=== PATIENT | female | born 1975 | race Caucasian/White ===

== ENCOUNTER 2017-08-12 12:24 | Emergency (ER) | payer OTHER, SELFPAY ==
[2017-08-12 12:25] VITALS: BP 153/133; PULSE 78; RESP 16; TEMP 36.6; O2SAT 98; BMI 47.8
--- NOTE | 2017-08-12 12:35 | CT_ITS ---
STUDY: CT ABDOMEN AND PELVIS WITHOUT CONTRAST REASON FOR EXAM: Female, 42 years old. Low back pain. Right worse than left. RADIATION DOSAGE (If Supplied By Facility): CTDIvol = ( 14.80 ) mGy, DLP = ( 777.85 ) mGycm TECHNIQUE: Transaxial images were obtained from the dome of the diaphragm to the symphysis pubis without oral contrast, and without intravenous contrast. Sagittal and coronal images were reconstructed. Individualized dose optimization techniques were used for this CT. COMPARISON: Comparison is made with prior examination dated May 05, 2017. FINDINGS: The visualized lung bases are unremarkable. The visualized portions of the heart are within normal limits. There is decreased attenuation of the liver consistent with steatosis. Mild hepatomegaly. Normal gallbladder and extrahepatic biliary system. Normal spleen. Normal pancreas. Normal bilateral adrenal glands. Normal right kidney. Normal left kidney. Normal visualized stomach. Normal small intestine. There are scattered colonic diverticula consistent with diverticulosis. The appendix is visualized and appears normal. Normal abdominal aorta. Normal inferior vena cava. Normal retroperitoneum. Normal urinary bladder. Normal abdominal wall. There are diffuse degenerative changes of the visualized lumbar spine. CT/Abdomen/Pelvis without Cont IMPRESSION: Fatty infiltration of the liver. Scattered sigmoid diverticula. Electronically Signed: Pedro Luis Mascorro MD at 14:43 EST Tel [phone], Service support ,
[2017-08-12 12:37] VITALS: BP 158/90; PULSE 80; RESP 14; O2SAT 98
--- NOTE | 2017-08-12 12:49 | ED.VISSUMM ---
- ER Visit Summary Date of Service: 08/12/17 Chief Complaint: Bilateral flank pain History of Present Illness: The patient is a 42 F presenting with bilateral flank pain, right greater than left. She states this started this morning. She has dysuria. She states that she sometimes feels that she does not completely empty her bladder. She denies fever. She has nausea with no vomiting. Denies trauma. She went to urgent care and was found to have blood in her urine. She was sent to the ED for further evaluation. Physical Examination: Vitals are stable. Patient is afebrile. Alert no acute distress. HEENT exam is unremarkable. Neck is supple. Lungs are clear and equal bilaterally. Heart is regular rate and rhythm. Abdomen is soft nontender nondistended. Back: Right greater than left CVA tenderness Extremities are unremarkable. Skin is warm and dry. No focal neurologic deficit. Remainder of exam is unremarkable. Emergency Department Course and Treatment: Patient was given Toradol IV. CBC, chemistries unremarkable. Urinalysis normal except for trace blood. HCG negative. CT flank shows no acute process. Patient is feeling improved in the ED. She is advised to follow-up with her primary care physician. She has Flexeril that she will try at home. She is advised return to ED if worsening complaints. Disposition: Discharge home Impression: Bilateral flank pain This note was generated with [employer] dictation software. It may contain incorrect words, spelling, and punctuation that were not noted in review of the chart prior to signing ED Disposition - Plan for ED Patient: Chief Complaint: Complaint Referrals: Diana Valentin MD [Primary Care Provider] -
[2017-08-12] MEDS: 0.9% Normal Saline 1,000 ML 1000 ML IV (12:51)
[2017-08-12 13:01] LABS: Absolute Lymphocyte Count 4.13 X10^3/ul (0.83-4.51); Absolute Neutrophil Count 5.3 X10^3/uL (2.0-7.7); Basophil# 0.03 X10^3/uL; Basophil% 0.3 % (0-1); Eosinophil# 0.13 X10^3/uL; Eosinophils% 1.3 % (0-5); Hematocrit 47.4 % (37-47); Hemoglobin 15.5 g/dl (12.0-15.0); Lymphocyte # 4.13 X10^3/ul (4.0); Lymphocyte % 40.9 % (19-41); Mean Corp Hgb Conc 32.7 g/gl (32-36); Mean Corpuscular Hgb 30.4 pg (27.0-32.0); Mean Corpuscular Volume 92.9 fL (81-99); Mean Platelet Vol. 10.5 fl (6.2-12.0); Monocyte# 0.51 X10^3/uL; Neutrophil # 5.27 X10^3/uL (2.7-7.7); Neutrophil % 52.2 % (47-70); Platelet Count 245 K/mm3 (150-450); RBC Distribution Width CV 14.6 % (11.6-14.6); RBC Distribution Width SD 49.6 fl (35.1-43.9); White Blood Count 10.1 K/mm3 (4.4-11.0)
[2017-08-12 13:04] LABS: POSITIVE COUNT NO; POSITIVE DIFFERENTIAL NO
[2017-08-12 13:05] LABS: POSITIVE MORPHOLOGY NO
[2017-08-12 13:13] LABS: Anion Gap 7 (5-15); BUN 13 mg/dL (7-18); BUN/Creat Ratio 13.4 RATIO (10-20); Calcium,Total 8.9 mg/dL (8.5-10.1); Chloride 107 mmol/L (98-107); Creatinine, Serum 0.97 mg/dL (0.55-1.02); EST Glomerular Filtration Rate 67 mL/min (>60); Est Glom Filt Rate - Afr Amer 81 mL/min (>60); Glucose 90 mg/dL (74-106); Sodium Level 139 mmol/L (136-145)
[2017-08-12 13:18] LABS: Pregnancy, Serum, hCG Quali. NEGATIVE Negative (0-9 Nonpreg)
[2017-08-12 14:41] LABS: Bacteria 0 SEEN /hpf (None Seen); Mucous, Urine 0 SEEN /hpf (<or=2+); Red Blood Cells-Urine 0 SEEN /hpf (0-5)
[2017-08-12 14:43] LABS: Color, Urine Yellow (Yellow); Glucose, Dipstick Normal (Normal); Ketone-Dipstick Negative (Negative); Leukocyte Esterase-Dipstick Negative /ul (Negative); Nitrite-Dipstick Negative (Negative); Occult Blood-Urine 25 /ul (Negative); Protein-Dipstick Negative (Negative); Specific Gravity, Urine 1.015 (1.002-1.030); Urine Bilirubin Dipstick Negative (Negative); Urine Clarity Clear (Clear); Urine Urobilinogen Normal (Normal)
[2017-08-12 14:54] LABS: Squamous Epithelial Cells - UA 0-5 SEEN /hpf (5-10); White Blood Cells 0-5 SEEN /hpf (0-5)
[2017-08-12] MEDS: Ketorolac 30 MG/ML Syringe IV (15:02)
[2017-08-12 15:11] VITALS: BP 153/92; PULSE 75; RESP 14; O2SAT 99
--- NOTE | 2017-08-12 15:38 | ED.DEP ---
ED Disposition - Plan for ED Patient: Chief Complaint: Complaint Instructions: ED Flank Pain Uncertain Cause Referrals: Diana Valentin MD [Primary Care Provider] -
[2017-08-12 15:47] VITALS: BP 143/75; PULSE 78; RESP 14; O2SAT 99
== END 2017-08-12 15:55 | disposition home or self-care (01) ==
PROVIDERS: Emergency Provider Emergency Medicine; Family Provider Internal Medicine; PCP Internal Medicine
DX: R10.9 Unspecified abdominal pain (principal); R31.9 Hematuria, unspecified; R11.0 Nausea; R30.0 Dysuria; E11.9 Type 2 diabetes mellitus without complications; I10 Essential (primary) hypertension; M79.7 Fibromyalgia; M19.90 Unspecified osteoarthritis, unspecified site; F41.9 Anxiety disorder, unspecified; Z79.4 Long term (current) use of insulin; Z79.52 Long term (current) use of systemic steroids; Z79.899 Other long term (current) drug therapy
CPT/HCPCS: 74176; 80048; 81001; 84703; 85025; 96360; 99283; J7030

== ENCOUNTER 2020-09-27 17:37 | Inpatient (IN) | payer MEDICAID, SELFPAY ==
[2020-09-27] VITALS (20 sets, daily range): BP systolic 155–211; BP diastolic 68–172; PULSE 56–80; RESP 14–32; TEMP 36.7–37.4; O2SAT 96–100; BMI 47.2; BMI 45.8
--- NOTE | 2020-09-27 17:38 | EKG12_ITS ---
Test Reason : Blood Pressure : / mmHG Vent. Rate : 061 BPM Atrial Rate : 064 BPM P-R Int : 120 ms QRS Dur : 102 ms QT Int : 448 ms P-R-T Axes : 064 085 088 degrees QTc Int : 450 ms AGE AND GENDER SPECIFIC ECG ANALYSIS Normal sinus rhythm with sinus arrhythmia ST elevation consider inferior injury or acute infarct ACUTE ID / STEMI Consider right ventricular involvement in acute inferior infarct Abnormal ECG Confirmed by JENI HENDRIX, ARYA ([id number]), communications editor SALMA PACHECO ([id number]) on 09/30/2020 8:03:45 AM Referred By: Sushant Gillespie Confirmed By:VANESSA GILLESPIE MD
--- NOTE | 2020-09-27 17:40 | RAD_ITS ---
STUDY: X-RAY CHEST REASON FOR EXAM: Female, 45 years old. chest pain TECHNIQUE: AP portable COMPARISON: None. FINDINGS: The lungs are clear and expanded. There is no demonstrated pleural abnormality. Normal size heart. Normal mediastinum and carmelita. Normal visualized pulmonary arteries. Normal visualized aortic arch and descending thoracic aorta. Dorsal spine and shoulders demonstrate degenerative change Normal visualized ribs, clavicles, and shoulders. There is no demonstrated abnormality of the visualized soft tissue structures of the upper abdomen. RAD/Chest 1 View (Portable) IMPRESSION: No acute cardiopulmonary pathology Electronically Signed: Angel Wilkins MD at 18:22 EDT , Service support ,
--- NOTE | 2020-09-27 17:42 | ED.VIS.CHEST ---
History of Present Illness Chief Complaint: Chest Pain Informant: Patient, EMS Onset: Hours Activity at onset: Rest Timing: Continuous Quality: Heaviness, Tightness Location: Substernal Current Severity: Moderate Maximum Severity: Severe Worsened By: Nothing Relieved By: Nothing Associated Symptoms: Nausea, Diaphoresis, Dyspnea. Negative for: Vomiting, Cough, Lightheadedness, Acid Reflux, Palpitations Narrative: Patient 45-year-old woman with history of diabetes, hypertension, hypercholesterolemia and stroke 1 year ago requiring stent. Patient is a former smoker. She has no known history of coronary disease. She denies history of black or maroon stool. Has no contraindication to anticoagulation. Patient is still having pain. She did receive aspirin by squad and 1 nitro. Nitro had no effect. Initial EKG by squad was unremarkable. Second EKG reveals an acute ST elevation SC with reciprocal changes. Case discussed with interventional cardiology. He was informed of patient's history, presentation, EKG findings and treatment. Patient will go to the [employer] [facility]. CVD Risk Factors: Hypertension, Diabetes, Hypercholesterolemia PE Risk Factors: Negative for: Recent Travel/Surgery, Recenet Immobilization, Prior DVT or PE, Cancer, OCP + Smoking + >/=35 TAD Risk Factors: Hypertension. Negative for: Marfan's Syndrome, Family History - Past Medical History (1) History of hypertension Status: Chronic (2) History of diabetes as a child Status: Chronic (3) History of hypercholesterolemia Status: Chronic (4) History of stroke Status: Chronic Past Medical History - Allergies and Home Meds Allergies/Adverse Reactions: Allergies adhesive tape Allergy (Verified 09/27/20 18:06) Other cefdinir Allergy (Verified 08/12/17 12:27) Rash fluticasone [From Flonase] Allergy (Verified 09/27/20 18:06) Other isosorbide Allergy (Verified 09/27/20 17:59) Chest tightness Penicillins Allergy (Verified 08/12/17 12:27) Rash sulfamethoxazole [From Bactrim] Allergy (Verified 08/12/17 12:27) Rash trimethoprim [From Bactrim] Allergy (Verified 08/12/17 12:27) Rash clarithromycin [From Biaxin] Adverse Reaction (Verified 08/12/17 12:27) Vomiting clindamycin Adverse Reaction (Verified 08/12/17 12:27) Diarrhea codeine Adverse Reaction (Verified 08/12/17 12:27) Other lisinopril Adverse Reaction (Verified 08/12/17 12:27) Vomiting naproxen Adverse Reaction (Verified 08/12/17 12:27) Other ropinirole HCl [From Requip] Adverse Reaction (Verified 08/12/17 12:27) Chest tightness Prior records reviewed: No Past Medical History: None Surgical History: noncontributory Lives: Alone Smoking Status: Current every day smoker Alcohol: None Drugs: None Review of Systems General: Denies: Chills, Fever, Malaise, Subjective Eyes: Denies: Visual changes - bilaterally, Blurred Vision - bilaterally ENT: Denies: Left ear pain, Right ear pain, Rhinorrhea, Sore throat Cardiovascular: Reports: Chest pain. Denies: Palpitations, Heart racing Respiratory: Reports: Dyspnea. Denies: Cough, Sputum, Dyspnea on exertion, Orthopnea, Paroxysmal nocturnal dyspnea Gastrointestinal: Reports: Nausea. Denies: Abdominal pain, Vomiting, Diarrhea, Constipation, Melena, Hematochezia Genitourinary: Reports: Dysuria Musculoskeletal: Reports: Back pain. Denies: Myalgias, Arthralgias, Neck pain, Swelling, Extremity Pain, -, - Skin: Denies: Rash, Wounds Neurological: Denies: Headache, Weakness, Numbness Endocrine: Denies: Polyuria, Polydipsia Hematologic: Denies: Easy bruising, Easy bleeding Allergy: Denies: Uticaria Physical Exam Vital Signs/Narrative: Vital Signs Temp Pulse Resp BP Pulse Ox 09/27/20 17:38 98.1 F 56 L 17 176/84 H 98 Inital Vital Signs reviewed: Yes General: Well nourished, Well developed, Obese, Acute Distress Head: Normocephalic, Atraumatic Eyes: Perrl, EOMI. Negative for: Pale conjunctiva, Scleral icterus ENT: Moist mucous membranes, No rhinorrhea Neck: Supple, Nontender Cardiovascular: Regular rate, Regular rhythm, No murmurs, Normal S1, Normal S2 Respiratory: No distress, CTA bilaterally, Chest nontender Abdomen: Soft, Nontender, Nondistended, Normal bowel sounds Back: Nontender, Normal Inspection. Negative for: CVA tenderness Extremities: Nontender, No edema Skin: Normal color, No rash, Diaphoresis, No Trauma. Negative for: Cyanosis, Jaundice Neurological: Alert, Oriented x3, Cranial nerves II-XII grossly intact, Normal Strength, Normal Sensation Psychological: Normal affect, Normal Mood Diagnostic/Tx/Re-eval Chest X-Ray - ED: 1 View, Read by ED Physician, Read by Radiologist, Unchanged, Normal, Heart, Lungs, Mediastinum, Bony Structures, No Acute Disease Impressions Chest X-Ray 09/27/20 17:40 IMPRESSION: No acute cardiopulmonary pathology Electronically Signed: Angel Wilkins MD at 18:22 EDT , Service support , 09/27/20 17:40 Chest 1 View (Portable) [RAD] Stat Laboratory Results 09/27/20 09/27/20 09/27/20 17:55 17:55 17:55 WBC 11.6 H RBC 5.29 Hgb 15.9 H Hct 47.4 H MCV 89.6 MCH 30.1 MCHC 33.5 RDW Std Deviation 46.1 H RDW Coeff of Claudia 14.1 Plt Count 290 MPV 10.4 Immature Gran % (Auto) 0.500 Neut % (Auto) 57.5 Lymph % (Auto) 34.3 [place] % (Auto) 6.1 Eos % (Auto) 1.2 Baso % (Auto) 0.4 Absolute Neuts (auto) 6.7 Absolute Lymphs (auto) 3.99 Nucleated RBC % 0 PT 12.2 INR 1.0 APTT 28.3 Sodium 137 Potassium 4.5 Chloride 103 Carbon Dioxide 24.0 Anion Gap 10 BUN 11 Creatinine 1.02 Estim Creat Clear Calc 60.14 Est GFR (MDRD) Af Amer 75 Est GFR (MDRD) Non-Af 62 BUN/Creatinine Ratio 10.8 Glucose 236 H Calcium 9.4 Troponin I 0.041 - EKG Initial EKG Interpretation: Sinus Rhythm - Sinus rhythm rate of [address] elevation inferior leads with reciprocal changes. MS interval is 120 ms. Cures duration 102 ms. QT duration 448 ms. Nevis is normal. Treatment: Aspirin, Heparin IV, - - 180 mg of Brilinta Repeat Eval: 12/17 CLEOPATRA Risk: ASA within 7 days, Severe Angina </=24 hours Score: 2 - Medical Decision Making Patient was informed she is having an acute SC with blockage in the inferior artery. Cardiology was made aware. STEMI team was called prehospital. STEMI order set was initiated. Plan is to the [employer] [facility]. Critical care time (excluding procedures): 30-74 minutes - Care time 15 minutes includes obtaining history, physical exam, documentation, review of EKGs prehospital, discussion with cardiology and hospitalist. ED Disposition - Plan for ED Patient: Disposition: Acute Care Hospital [facility] Diagnosis: Acute ST elevation myocardial infarction (STEMI) of inferior wall, History of hypertension, History of diabetes as a child, History of hypercholesterolemia, History of stroke
[2020-09-27] MEDS: TICAGRELOR 90 MG TABLET 180 MG PO (17:43)
[2020-09-27] MEDS: Heparin Injection (Vial) 5,000 UNIT/ML VIAL 4000 UNIT IV (17:44)
--- NOTE | 2020-09-27 17:56 | CM.ED ---
Addendum entered by Soco Gore 09/27/20 18:12: Escorted brother to laboratory tech. Original Note: SOCIAL WORK STEMI Alert Responded to STEMI Alert. Patient's brother arrived. SW offered support and education. Once laboratory tech ready will escort brother to laboratory tech. Caroline Mcfadden, PATENT CHEMIST, STOCKROOM COORDINATOR
[2020-09-27 18:06] LABS: Absolute Lymphocyte Count 3.99 X10^3/uL (0.83-4.51); Absolute Neutrophil Count 6.7 X10^3/uL (2.0-7.7); Basophil# 0.05 X10^3/uL; Basophil% 0.4 % (0-1); Eosinophil# 0.14 X10^3/uL; Eosinophils% 1.2 % (0-5); Hematocrit 47.4 % (37-47); Hemoglobin 15.9 g/dL (12.0-15.0); Lymphocyte # 3.99 X10^3/ul (0.83-4.51); Lymphocyte % 34.3 % (19-41); Mean Corp Hgb Conc 33.5 g/dL (32-36); Mean Corpuscular Hgb 30.1 pg (27.0-32.0); Mean Corpuscular Volume 89.6 fL (81-99); Mean Platelet Vol. 10.4 fl (6.2-12.0); Monocyte# 0.71 X10^3/uL; Monocyte% 6.1 % (0-10); NRBC Flagged by Analyzer 0 % (0-5); Neutrophil # 6.67 X10^3/uL (2.7-7.7); Neutrophil % 57.5 % (47-70); Platelet Count 290 K/mm3 (150-450); RBC Distribution Width CV 14.1 % (11.6-14.6); RBC Distribution Width SD 46.1 fl (35.1-43.9); Red Blood Count 5.29 M/mm3 (4.2-5.4); White Blood Count 11.6 K/mm3 (4.4-11.0)
[2020-09-27 18:25] LABS: Anion Gap 10 (5-15); BUN 11 mg/dL (7-18); BUN/Creat Ratio 10.8 RATIO (10-20); Calcium,Total 9.4 mg/dL (8.5-10.1); Chloride 103 mmol/L (98-107); Creatinine, Serum 1.02 mg/dL (0.55-1.02); EST Glomerular Filtration Rate 62 mL/min (>60); Est Glom Filt Rate - Afr Amer 75 mL/min (>60); Estimated Creatinine Clearance 60.14 ml/min; Glucose 236 mg/dL (74-106); Potassium 4.5 mmol/L (3.5-5.1); Sodium Level 137 mmol/L (136-145)
[2020-09-27 18:41] LABS: Prothrombin Time (Protime)PT. 12.2 SECONDS (11.7-14.9)
[2020-09-27 18:43] LABS: Partial Thromboplast Time 28.3 Seconds (24.1-36.2)
--- NOTE | 2020-09-27 19:57 | HP.PCM_ITS ---
Problem List (1) Acute ST elevation myocardial infarction (STEMI) of inferior wall Status: Acute (2) History of hypertension Status: Chronic (3) History of diabetes as a child Status: Chronic (4) History of hypercholesterolemia Status: Chronic (5) History of stroke Status: Chronic (6) Non-alcoholic fatty liver disease Status: Chronic History of Present Illness Date of Admission: 09/27/20 Chief Complaint: Chest Pain Patient is a 45-year-old female who presents to the ER with complaints of substernal chest pain at rest with associated nausea, diaphoresis, dyspnea. Patient states that this chest pain has been going on for a few hours and is a 9 out of 10. Nothing has improved the pain and only time has made it worse. States that the pain does not radiate to her arm, back or neck. EMS noted acute ST elevation on EKG prior to patient arrival at hospital and a STEMI alert was called. Past Medical History Past Medical History (Chronic Problems): Chronic Problems History of hypertension (Chronic) History of diabetes as a child (Chronic) History of hypercholesterolemia (Chronic) History of stroke (Chronic) Non-alcoholic fatty liver disease (Chronic) Allergies adhesive tape Allergy (Verified 09/27/20 18:06) Other cefdinir Allergy (Verified 08/12/17 12:27) Rash fluticasone [From Flonase] Allergy (Verified 09/27/20 18:06) Other isosorbide Allergy (Verified 09/27/20 17:59) Chest tightness Penicillins Allergy (Verified 08/12/17 12:27) Rash sulfamethoxazole [From Bactrim] Allergy (Verified 08/12/17 12:27) Rash trimethoprim [From Bactrim] Allergy (Verified 08/12/17 12:27) Rash clarithromycin [From Biaxin] Adverse Reaction (Verified 08/12/17 12:27) Vomiting clindamycin Adverse Reaction (Verified 08/12/17 12:27) Diarrhea codeine Adverse Reaction (Verified 08/12/17 12:27) Other lisinopril Adverse Reaction (Verified 08/12/17 12:27) Vomiting naproxen Adverse Reaction (Verified 08/12/17 12:27) Other ropinirole HCl [From Requip] Adverse Reaction (Verified 08/12/17 12:27) Chest tightness Home Medications: Ambulatory Orders Medication Instructions Recorded Gabapentin [Neurontin] 1,200 mg PO QHS 02/26/16 Hydrochlorothiazide [Hctz] 12.5 mg PO DAILY 02/26/16 Atorvastatin Calcium [Lipitor] 40 mg PO DAILY 05/05/17 Bupropion HCl [Bupropion Xl] 150 mg PO DAILY 05/05/17 Fexofenadine HCl [Essie Allergy] 180 mg PO DAILY 05/05/17 Glimepiride [Amaryl] 4 mg PO DAILY 05/05/17 Losartan Potassium [Cozaar] 25 mg PO DAILY 05/05/17 Metformin HCl 1,000 mg PO BID 05/05/17 Prednisone 10 mg PO DAILY 05/05/17 cycloBENZAPRine HCl [Flexeril] 10 mg PO PRN PRN 05/05/17 Surgical History: noncontributory Psychiatric History: No pertinent psych hx PIANO PROFESSOR History: No pertinent PIANO PROFESSOR history Lives: Alone Smoking Status: Current every day smoker Tobacco Use: Cigarettes Alcohol: None Drugs: None Review of Systems Constitutional: Denies: Chills, Fever, Weight Change HEENT: Denies: Head Aches, Sinus Congestion, Sinus Drainage Cardiovascular: Reports: Chest Pain, Chest Pressure, Chest Tightness. Denies: Palpitations Respiratory: Denies: Cough, Shortness of breath at rest, Sputum production Gastrointestinal: Reports: Nausea. Denies: Abdominal Pain, Vomiting Genitourinary: Denies: Dysuria Musculoskeletal: Denies: Joint Pain, Joint Tenderness Skin: Denies: Rash, Wounds Neurological: Denies: Numbness, Tingling, Focal weakness Psychiatric: Denies: Anxiety, Depression, Homicidal Ideations, Suicidal Ideations Hematologic/ Lymphatic: Denies: Easy Bruising, Easy Bleeding VTE Information - Inpt Only VTE Present on Admission: No VTE Mechan Device Prophylaxis: SCD's VTE Pharm Prophylaxis ordered?: Yes Patient Problems: Active and Suspected Problems Acute ST elevation myocardial infarction (STEMI) of inferior wall (Acute) - Physical Exam Vitals/I&O's: Vital Signs Temp Pulse Resp BP Pulse Ox 98.4 F 70 16 211/172 H 100 09/27/20 17:59 09/27/20 17:59 09/27/20 17:59 09/27/20 17:59 09/27/20 17:59 Oxygen Delivery Method Room Air Weight: 275 lb 2.19 oz Body Mass Index (BMI) 47.2 General: Alert, Oriented x3, Cooperative HEENT: Atraumatic, PERRLA, EOMI, Normocephalic Neck: Supple, No JVD, Negative Carotid Bruits Lungs: Clear to auscultation, Normal air movement, Short of Breath Cardiovascular: Regular rate, Regular Rhythm, Normal S1, Normal S2, No murmurs, - - Chest pain currently 3 out of 10, nitro drip infusing Abdomen: Bowel Sounds Present, Soft, Non Tender Extremities: No edema, Capillary Refill Less than 3 Seconds Skin: No rashes, No breakdown Musculoskeletal: No Tenderness to Palpation of Joints or Extremities Neurological: Cranial nerves II-XII grossly intact Psych/Mental Status: Normal Affect, Appropriate Laboratory Results 09/27/20 17:55: WBC 11.6 H, RBC 5.29, Hgb 15.9 H, Hct 47.4 H, MCV 89.6, MCH 30.1, MCHC 33.5, RDW Std Deviation 46.1 H, RDW Coeff of Claudia 14.1, Plt Count 290, MPV 10.4, Immature Gran % (Auto) 0.500, Neut % (Auto) 57.5, Lymph % (Auto) 34.3, [place] % (Auto) 6.1, Eos % (Auto) 1.2, Baso % (Auto) 0.4, Absolute Neuts (auto) 6.7, Absolute Lymphs (auto) 3.99, Nucleated RBC % 0 09/27/20 17:55: PT 12.2, INR 1.0, APTT 28.3 09/27/20 17:55: Sodium 137, Potassium 4.5, Chloride 103, Carbon Dioxide 24.0, Anion Gap 10, BUN 11, Creatinine 1.02, Estim Creat Clear Calc 60.14, Est GFR (MDRD) Af Amer 75, Est GFR (MDRD) Non-Af 62, BUN/Creatinine Ratio 10.8, Glucose 236 H, Calcium 9.4, Troponin I 0.041 Current Medications Aspirin (Aspirin E.C. 81 Mg Tablet) 81 mg PO DAILY@0800 REPLACED BY [facility] Atorvastatin Calcium (Atorvastatin Calcium 40 Mg Tablet) 40 mg PO QHS REPLACED BY [facility] Atropine Sulfate (Atropine Sulfate 1 Mg/10 Ml Syringe) 0.5 mg IV UD PRN PRN Reason: HR <50 bpm Carvedilol (Carvedilol 6.25 Mg Tablet) 6.25 mg PO BID REPLACED BY [facility] Heparin Sodium (Beef Lung) (Heparin Lock 500 Unit/5 Ml In 10 Ml Syringe) 500 unit IV UD PRN PRN Reason: HEPARIN FLUSH Labetalol HCl (Labetalol (Prefilled) 20 Mg/4 Ml) 5 mg IV X1 PRN PRN Reason: SBP >160 when pulling sheath Stop: 09/29/20 19:53 Sodium Chloride (0.9% Normal Saline 500 Ml Iv.Soln.) 500 ml IV BOLUS PRN PRN Reason: VASO-VAGAL PROTOCOL Ticagrelor (Ticagrelor 90 Mg Tablet) 90 mg PO BID REPLACED BY [facility] Assessment/Plan All Active Problems Acute ST elevation myocardial infarction (STEMI) of inferior wall (Acute) 1. STEMI -Admit to ICU for continuous cardiac monitoring -CBC and BMP daily -Consult cardiology -Echocardiogram in a.m. -Trend cardiac enzymes -Lipid panel, magnesium, phosphorus chest pain chest pain in a.m. 2. Hypertension -Continue HCTZ and Losartan. -Nitroglycerin drip initiated 3. Diabetes mellitus type 2 -Hold Metformin and glimepiride -AC at bedtime blood sugars with sliding scale insulin ordered -Check hemoglobin A1c -Consult nutrition for diabetic education 4. Hyperlipidemia -Increase atorvastatin to 80 mg p.o. 5. Morbid obesity, BMI -Nutrition consulted for education, lifestyle modification encouraged DVT prophylaxis-Lovenox to start tomorrow due to cardiac cath This patient was seen by Lamar Hood NP-C under the supervision of Dr. Chopra
--- NOTE | 2020-09-27 19:58 | PCM.CONS.C ---
Reason for Consult Date of Consultation: 09/27/20 History of Present Illness: The patient is a 45 year old F [coming to the emergency room because of chest pain. In the emergency room she was found to have inferior ST elevation [place] and a STEMI alert was called. Patient was brought emergently to the cardiac [facility] [employer] [facility] Director and coronary angiography was performed. There was delay to PCI as it was difficult to get vascular access for the patient. We initially tried the right ulnar artery and then both common femoral arteries and finally were able to get access through the right brachial artery. Patient was found to have 99% stenosis in the mid RCA that was treated with drug-eluting stents. She also had an 80% stenosis in the LAD that was treated with a drug-eluting stent. Patient is being admitted to the ICU for further management of rest elevation [place]. Review of systems: All systems reviewed. All else is negative except that in HPI.] Past Medical History Allergies/Adverse Reactions: Allergies adhesive tape Allergy (Verified 09/27/20 18:06) Other cefdinir Allergy (Verified 08/12/17 12:27) Rash fluticasone [From Flonase] Allergy (Verified 09/27/20 18:06) Other isosorbide Allergy (Verified 09/27/20 17:59) Chest tightness Penicillins Allergy (Verified 08/12/17 12:27) Rash sulfamethoxazole [From Bactrim] Allergy (Verified 08/12/17 12:27) Rash trimethoprim [From Bactrim] Allergy (Verified 08/12/17 12:27) Rash clarithromycin [From Biaxin] Adverse Reaction (Verified 08/12/17 12:27) Vomiting clindamycin Adverse Reaction (Verified 08/12/17 12:27) Diarrhea codeine Adverse Reaction (Verified 08/12/17 12:27) Other lisinopril Adverse Reaction (Verified 08/12/17 12:27) Vomiting naproxen Adverse Reaction (Verified 08/12/17 12:27) Other ropinirole HCl [From Requip] Adverse Reaction (Verified 08/12/17 12:27) Chest tightness Home Medications: Ambulatory Orders Medication Instructions Recorded Gabapentin [Neurontin] 1,200 mg PO QHS 02/26/16 Hydrochlorothiazide [Hctz] 12.5 mg PO DAILY 02/26/16 Atorvastatin Calcium [Lipitor] 40 mg PO DAILY 05/05/17 Bupropion HCl [Bupropion Xl] 150 mg PO DAILY 05/05/17 Fexofenadine HCl [Essie Allergy] 180 mg PO DAILY 05/05/17 Glimepiride [Amaryl] 4 mg PO DAILY 05/05/17 Losartan Potassium [Cozaar] 25 mg PO DAILY 05/05/17 Metformin HCl 1,000 mg PO BID 05/05/17 Prednisone 10 mg PO DAILY 05/05/17 cycloBENZAPRine HCl [Flexeril] 10 mg PO PRN PRN 05/05/17 Surgical History: noncontributory Lives: Alone Smoking Status: Current every day smoker Tobacco Use: Cigarettes Alcohol: None Drugs: None Objective: Vital Signs Temp Pulse Resp BP Pulse Ox 98.4 F 70 16 211/172 H 100 09/27/20 17:59 09/27/20 17:59 09/27/20 17:59 09/27/20 17:59 09/27/20 17:59 Oxygen Delivery Method Room Air Weight: 275 lb 2.19 oz Body Mass Index (BMI) 47.2 General: Awake, Alert, Oriented x 3 HEENT: Atraumatic Neck: Supple Lungs: Clear to auscultation Cardiovascular: Regular Rhythm Abdomen: Soft Extremities: No edema Psych/Mental Status: Appropriate 09/27/20 17:55: WBC 11.6 H, RBC 5.29, Hgb 15.9 H, Hct 47.4 H, MCV 89.6, MCH 30.1, MCHC 33.5, Plt Count 290, MPV 10.4, Immature Gran % (Auto) 0.500, Neut % (Auto) 57.5, Lymph % (Auto) 34.3, [place] % (Auto) 6.1, Eos % (Auto) 1.2, Baso % (Auto) 0.4, Absolute Neuts (auto) 6.7, Nucleated RBC % 0 09/27/20 17:55: PT 12.2, INR 1.0, APTT 28.3 09/27/20 17:55: Sodium 137, Potassium 4.5, Chloride 103, Carbon Dioxide 24.0, Anion Gap 10, BUN 11, Creatinine 1.02, Est GFR (MDRD) Af Amer 75, Est GFR (MDRD) Non-Af 62, BUN/Creatinine Ratio 10.8, Glucose 236 H, Calcium 9.4, Troponin I 0.041 Rhythm: EKG: ECHO: Stress Test: Cardiac Cath: PCI: CT Surgery: Holter monitor: EPS: PPM: CXR: Chest CT Scan: Assessment/Plan 1. ST elevation [place]: Patient was treated with drug-eluting stents to the RCA as described. Because of difficult vascular access her LAD stenosis was also treated during the same procedure. She had an 80% stenosis in the LAD that was treated with a drug-eluting stent. We will keep the patient on aspirin, Brilinta, beta-selam, ARB, statin.
--- NOTE | 2020-09-27 20:00 | EKG12_ITS ---
Test Reason : POST CATH Blood Pressure : / mmHG Vent. Rate : 072 BPM Atrial Rate : 072 BPM P-R Int : 126 ms QRS Dur : 090 ms QT Int : 404 ms P-R-T Axes : 065 056 025 degrees QTc Int : 442 ms Normal sinus rhythm Normal ECG No previous ECGs available Confirmed by JENI HENDRIX, ARYA ([id number]), map editor SALMA PACHECO ([id number]) on 10/03/2020 9:58:09 AM Referred By: Sushant Gillespie Confirmed By:VANESSA GILLESPIE MD
--- NOTE | 2020-09-27 21:34 | ECHOCS_ITS ---
Reason For Study: Chest Pain Procedure This was a 2D Doppler, Color Flow transthoracic echocardiogram. Technically difficult study due to patients body habitus. Contrast injection performed. Exam performed portable in ICU/CCU. Left Ventricle Normal LV size. The estimated ejection fraction is 55 %. No evidence for diastolic dysfunction. mild hypokinesis of the inferolateral wall. Right Ventricle Normal RV size. Normal systolic function. Atria Normal left atrium. Normal right atrium. No doppler evidence for ASD. Mitral Valve There is no mitral valve stenosis. No mitral valve insufficiency. Tricuspid Valve There is no tricuspid stenosis. No tricuspid valve insufficiency. Unable to estimate RV systolic pressure due to insufficient tricuspid regurgitant envelope. Aortic Valve The aortic valve is not well visualized. There is no aortic stenosis. No aortic valve insufficiency. Pulmonic Valve There is no pulmonic valvular stenosis. No pulmonic valve insufficiency. Great Vessels Normal aortic root. Pericardium/Pleural No pericardial effusion. Medication Diluted definity 4ml given slow IV push to enhance endocardial definition. MMode/2D Measurements & Calculations LVIDd: 4.7 cm IVSd: 1.3 cm LA dimension: 3.5 cm LVIDs: 3.1 cm LVPWd: 1.2 cm FS: 33.2 % LAV(MOD-bp): 49.2 ml LA A4 area: 18.0 cm2 LAV(MOD-bp) Indexed: 22.3 ml/m2 LAV(MOD-sp2): 44.6 ml LAV(MOD-sp4): 48.8 ml Time Measurements MV dec time: 0.23 sec Doppler Measurements & Calculations MV E max seth: 93.1 cm/sec Lat Peak E' Seth: 10.9 cm/sec Med Peak E' Seth: 6.6 cm/sec MV A max seth: 103.3 cm/sec E/E' lat: 8.5 E/E' med: 14.1 MV E/A: 0.90 MV V2 max: 115.6 cm/sec MV P1/2t max seth: 113.6 cm/sec Ao V2 max: 178.2 cm/sec MV max P.3 mmHg MV P1/2t: 74.5 msec Ao max P.7 mmHg MV V2 mean: 70.8 cm/sec MV dec slope: 446.8 cm/sec2 MV mean P.3 mmHg MV V2 VTI: 29.3 cm MVA(P1/2t): 3.0 cm2 LV V1 max: 136.6 cm/sec PA V2 max: 105.9 cm/sec LV V1 max P.5 mmHg ECHO/Echo Complete W/ Contrast Interpretation Summary The estimated ejection fraction is 55 %. No evidence for diastolic dysfunction. mild hypokinesis of the inferolateral wall The study was technically difficult. Contrast injection was performed. Ordering Physician: Lamar Hood Referring Physician: Sushant Gillespie Performed By: Hebert Ramirez RCS
[2020-09-27] MEDS: 0.9% Normal Saline 1,000 ML 150 ML IV (22:07)
[2020-09-27] MEDS: 0.9% Saline Lock 10 ML Syringe IV (22:08)
[2020-09-27] MEDS: Nitroglycerin Infusion 250 ML 3 MG IV (22:09)
[2020-09-27 22:29] LABS: Hemoglobin A1c 7.9 % (3.8-5.6)
[2020-09-27] MEDS: Insulin Lispro 100 UNIT/ML INSULN.PEN SC (22:40)
[2020-09-27] MEDS: Carvedilol 6.25 MG Tablet PO (22:40)
[2020-09-27] MEDS: Atorvastatin Calcium 40 MG Tablet PO (22:40)
[2020-09-27 22:51] LABS: Bedside Glucose 236 mg/dL (70-110)
[2020-09-28] VITALS (37 sets, daily range): BP systolic 90–193; BP diastolic 65–94; PULSE 67–91; RESP 10–26; TEMP 36.6–37.3; O2SAT 95–100
[2020-09-28 03:56] LABS: ALB/GLOB Ratio 0.6 RATIO (0.9-2.4); AST(SGOT) 27 U/L (15-37); Alanine Aminotransfer ALT/SGPT 34 U/L (13-56); Albumin, Serum 2.5 g/dL (3.2-5.0); Alkaline Phosphatase 94 U/L (45-117); Anion Gap 10 (5-15); BUN 10 mg/dL (7-18); BUN/Creat Ratio 10.7 RATIO (10-20); Calcium,Total 8.2 mg/dL (8.5-10.1); Chloride 106 mmol/L (98-107); Cholesterol 230 mg/dL (200); Creatinine, Serum 0.94 mg/dL (0.55-1.02); EST Glomerular Filtration Rate 69 mL/min (>60); Est Glom Filt Rate - Afr Amer 83 mL/min (>60); Estimated Creatinine Clearance 65.26 ml/min; Globulin 4.1 g/dL (2.2-4.2); Glucose 245 mg/dL (74-106); High Density Lipoprotein 37 mg/dL; Magnesium 1.7 mg/dL (1.6-2.6); Phosphorus 2.3 mg/dL (2.5-4.9); Protein, Total 6.6 g/dL (6.4-8.2); Sodium Level 133 mmol/L (136-145); Triglycerides 323 mg/dL; Very Low Density Lipoprotein 65 mg/dL (5-40)
[2020-09-28] MEDS: 0.9% Normal Saline 1,000 ML 150 ML IV (04:07)
[2020-09-28 05:34] LABS: Absolute Neutrophil Count 8.3 X10^3/uL (2.0-7.7); Basophil# 0.05 X10^3/uL; Basophil% 0.4 % (0-1); Eosinophil# 0.03 X10^3/uL; Eosinophils% 0.2 % (0-5); Hematocrit 43.6 % (37-47); Hemoglobin 14.3 g/dL (12.0-15.0); Lymphocyte % 25.6 % (19-41); Mean Corp Hgb Conc 32.8 g/dL (32-36); Mean Corpuscular Hgb 30.2 pg (27.0-32.0); Mean Corpuscular Volume 92.2 fL (81-99); Mean Platelet Vol. 10.1 fl (6.2-12.0); Monocyte# 0.62 X10^3/uL; Monocyte% 5.1 % (0-10); NRBC Flagged by Analyzer 0 % (0-5); Neutrophil # 8.25 X10^3/uL (2.7-7.7); Neutrophil % 68.2 % (47-70); Platelet Count 233 K/mm3 (150-450); RBC Distribution Width CV 14.4 % (11.6-14.6); RBC Distribution Width SD 49.1 fl (35.1-43.9); Red Blood Count 4.73 M/mm3 (4.2-5.4); White Blood Count 12.1 K/mm3 (4.4-11.0)
[2020-09-28] MEDS: hydrALAZINE 20 MG/ML Vial 10 MG IV ×3 (06:15→19:21)
[2020-09-28] MEDS: TICAGRELOR 90 MG TABLET PO ×2 (06:15→21:19)
[2020-09-28] MEDS: Acetaminophen 325 MG Tablet 650 MG PO ×2 (06:34→23:56)
--- NOTE | 2020-09-28 07:23 | PN_ITS ---
Patient Problems: Active and Suspected Problems (Last Updated 09/28/20 @ 08:27 by Isha Anthony) Acute ST elevation myocardial infarction (STEMI) of inferior wall (Acute) Reason for Visit: Follow-up for acute inferior wall STEMI Objective: Patient has history of coronary artery disease and had cardiac cath in the past but did not require PCI/stent. Was admitted with inferior wall STEMI and had primary PCI Currently denies chest pain or shortness of breath. Morbid obese Physical exam General: Alert, Oriented x3, Cooperative HEENT: Atraumatic, PERRLA, EOMI, Normocephalic Oral: No Gingival or Mucosal Lesions/ Ulcerations Neck: Supple, No JVD, Negative Carotid Bruits Lungs: Air entry diminished in bilateral lung bases. No crepitation/rhonchi Cardiovascular: Regular rate, Regular Rhythm, Normal S1, Normal S2, No murmurs Abdomen: Bowel Sounds Present, Soft, Non Tender, Non-Distended : No renal angle tenderness. No suprapubic tenderness. Extremities: Right brachial artery cardiac cath access site. No hematoma or bruise. Mild bilateral ankle edema, Capillary Refill Less than 3 Seconds Skin: No rashes, No breakdown Musculoskeletal: No Tenderness to Palpation of Joints or Extremities Neurological: Cranial nerves II-XII grossly intact, Deep Tendon Reflexes 2+/4 and Symmetrical, Neuro grossly intact Psych/Mental Status: Normal Affect, Appropriate. Vitals/I&O's: Vital Signs Temp Pulse Resp BP Pulse Ox 98.8 F 67 16 169/90 H 96 09/28/20 04:00 09/28/20 06:15 09/28/20 06:00 09/28/20 06:15 09/28/20 06:00 Oxygen Delivery Method Room Air Weight: 266 lb 15.677 oz Body Mass Index (BMI) 45.8 Intake and Output for Last 24 Hours 09/26/20 09/27/20 09/28/20 23:59 23:59 23:59 Intake Total 6.30 / 7.80 925.5 / 925.5 Output Total 725 / 725 1700 / 1700 Balance -718.70 / -717.20 -774.5 / -774.5 Laboratory Results 09/27/20 17:55: WBC 11.6 H, RBC 5.29, Hgb 15.9 H, Hct 47.4 H, MCV 89.6, MCH 30.1, MCHC 33.5, RDW Std Deviation 46.1 H, RDW Coeff of Claudia 14.1, Plt Count 290, MPV 10.4, Immature Gran % (Auto) 0.500, Neut % (Auto) 57.5, Lymph % (Auto) 34.3, [place] % (Auto) 6.1, Eos % (Auto) 1.2, Baso % (Auto) 0.4, Absolute Neuts (auto) 6.7, Absolute Lymphs (auto) 3.99, Nucleated RBC % 0 09/27/20 17:55: PT 12.2, INR 1.0, APTT 28.3 09/27/20 17:55: Sodium 137, Potassium 4.5, Chloride 103, Carbon Dioxide 24.0, Anion Gap 10, BUN 11, Creatinine 1.02, Estim Creat Clear Calc 60.14, Est GFR (MDRD) Af Amer 75, Est GFR (MDRD) Non-Af 62, BUN/Creatinine Ratio 10.8, Glucose 236 H, Calcium 9.4, Troponin I 0.041 09/27/20 17:55: Hemoglobin A1c 7.9 H 09/27/20 22:36: POC Glucose 236 H 09/28/20 02:10: Sodium 133 L, Potassium 4.0, Chloride 106, Carbon Dioxide 17.0 L , Anion Gap 10, BUN 10, Creatinine 0.94, Estim Creat Clear Calc 65.26, Est GFR (MDRD) Af Amer 83, Est GFR (MDRD) Non-Af 69, BUN/Creatinine Ratio 10.7, Glucose 245 H, Calcium 8.2 L, Phosphorus 2.3 L, Magnesium 1.7, Total Bilirubin 0.40, AST 27, ALT 34, Alkaline Phosphatase 94, Total Protein 6.6, Albumin 2.5 L, Globulin 4.1, Albumin/Globulin Ratio 0.6 L, Triglycerides 323 H, Cholesterol 230 H, LDL Cholesterol 128, VLDL Cholesterol 65 H, HDL Cholesterol 37 L 09/28/20 02:10: Troponin I 3.290 H* 09/28/20 05:18: WBC 12.1 H, RBC 4.73, Hgb 14.3, Hct 43.6, MCV 92.2, MCH 30.2, MCHC 32.8, RDW Std Deviation 49.1 H, RDW Coeff of Claudia 14.4, Plt Count 233, MPV 10.1, Immature Gran % (Auto) 0.500, Neut % (Auto) 68.2, Lymph % (Auto) 25.6, [place] % (Auto) 5.1, Eos % (Auto) 0.2, Baso % (Auto) 0.4, Absolute Neuts (auto) 8.3 H, Absolute Lymphs (auto) 3.10, Nucleated RBC % 0 09/28/20 05:18: Troponin I Pending 09/28/20 05:18: Troponin I 4.490 H* Current Medications Acetaminophen (Acetaminophen 325 Mg Tablet) 650 mg PO Q6H PRN PRN PRN Reason: Pain Score 1-10/Temp > 100.7 F Last Admin: 09/28/20 06:34 Dose: 650 mg Documented by: Albuterol Sulfate (Albuterol 2.5 Mg/3 Ml Vial.Neb.) 2.5 mg INHALATION Q2H PRN PRN PRN Reason: Dyspnea, wheezing Aspirin (Aspirin E.C. 81 Mg Tablet) 81 mg PO DAILY@0800 [facility] Atorvastatin Calcium (Atorvastatin Calcium 40 Mg Tablet) 40 mg PO QHS [facility] Last Admin: 09/27/20 22:40 Dose: 40 mg Documented by: Atropine Sulfate (Atropine Sulfate 1 Mg/10 Ml Syringe) 0.5 mg IV UD PRN PRN Reason: HR <50 bpm Carvedilol (Carvedilol 6.25 Mg Tablet) 6.25 mg PO BID [facility] Last Admin: 09/27/20 22:40 Dose: 6.25 mg Documented by: Enoxaparin Sodium (Enoxaparin 40 Mg/0.4 Ml Syringe) 40 mg SC BID [facility] Heparin Sodium (Beef Lung) (Heparin Lock 500 Unit/5 Ml In 10 Ml Syringe) 500 unit IV UD PRN PRN Reason: HEPARIN FLUSH Hydralazine HCl (Hydralazine 20 Mg/Ml Vial) 10 mg IV Q4H PRN PRN PRN Reason: SBP > 160 Last Admin: 09/28/20 06:15 Dose: 10 mg Documented by: Sodium Chloride () 250 mls @ 15 mls/hr IV .[id number] PRN PRN Reason: Saline Flush Sodium Chloride () 250 mls @ 15 mls/hr IV .[id number] PRN PRN Reason: Additional IVPB Infusion Sodium Chloride () 1,000 mls @ 150 mls/hr IV .[id number] [facility] Last Admin: 09/28/20 04:07 Dose: 150 mls/hr Documented by: Nitroglycerin/Dextrose () 250 mls @ 3 mls/hr IV .[id number] [facility]; Protocol Last Titration: 09/28/20 04:00 Dose: 10 mcg/min, 6 mls/hr Documented by: Insulin Human Lispro (Insulin Lispro 100 Unit/Ml Insuln.Pen) 0 unit SC ACHS [facility]; Protocol Last Admin: 09/27/20 22:40 Dose: 4 u Documented by: Labetalol HCl (Labetalol (Prefilled) 20 Mg/4 Ml) 5 mg IV X1 PRN PRN Reason: SBP >160 when pulling sheath Stop: 09/29/20 19:53 Melatonin (Melatonin 3 Mg Tablet) 3 mg PO QHS PRN PRN PRN Reason: INSOMNIA Morphine Sulfate (Morphine 2 Mg/Ml Syringe) 2 mg IV Q3H PRN PRN PRN Reason: Pain Score 6-10 Nitroglycerin (Nitroglycerin (Inpatient Use) 0.4 Mg Tab.Subl) 0.4 mg SL Q5M PRN PRN Reason: CARDIAC/CHEST PAIN Ondansetron HCl (Ondansetron 4 Mg/2 Ml Vial) 4 mg IV Q8H PRN PRN PRN Reason: NAUSEA/VOMITING Sodium Chloride (0.9% Normal Saline 500 Ml Iv.Soln.) 500 ml IV BOLUS PRN PRN Reason: VASO-VAGAL PROTOCOL Sodium Chloride (0.9% Saline Lock 10 Ml Syringe) 10 - 40 ml IV UD PRN PRN Reason: SALINE FLUSH Last Admin: 09/27/20 22:08 Dose: 10 ml Documented by: Ticagrelor (Ticagrelor 90 Mg Tablet) 90 mg PO BID [facility] Last Admin: 09/28/20 06:15 Dose: 90 mg Documented by: STROKE Vital Signs/Narrative: Vital Signs Temp Pulse Resp BP BP Pulse Ox 09/28/20 06:15 67 169/90 H 09/28/20 06:00 69 16 169/90 H 96 09/28/20 05:00 69 17 170/77 H 96 09/28/20 04:45 96 09/28/20 04:00 98.8 F 69 17 156/87 H 156/87 H 96 Medical Necessity - Tobacco Use Smoking Status: Current every day smoker Tobacco Use: Cigarettes Assessment/Plan All Active Problems (Last Updated 09/28/20 @ 08:27 by Isha Anthony) Acute ST elevation myocardial infarction (STEMI) of inferior wall (Acute) The patient is 45-year-old female admitted with chest pain and found to have inferior wall STEMI. 1. Inferior wall STEMI: There was procedure delay to PCI because difficult to get vascular access. Initially right ulnar artery, and both common femoral arteries and then finally got access of right brachial artery. It was found to have 99% stenosis of mid RCA and 80% of LAD for which ESAU was done. 2D echo is ordered. Patient on aspirin, Brilinta, carvedilol, losartan and atorvastatin. Troponin high. 2D echo Interpretation Summary The estimated ejection fraction is 55 %.No evidence for diastolic dysfunction. mild hypokinesis of the inferolateral wall Fasting profile shows LDL 128, triglyceride 323 and total cholesterol 230, HDL 37. On high intensity atorvastatin. Hypophosphatemia, on Neutra-Phos. 2. Hypertensive emergency present on admission with inferior wall STEMI/endorgan damage: Blood pressure still elevated -Continue HCTZ and Losartan. IV hydralazine and labetalol as needed for hypertensive emergency. -Nitroglycerin drip was discontinued. 3. Diabetes mellitus type 2: With morbid obesity and hyperglycemia: A1c 7.9. Glucose about 200. Uptitrate insulin dose. Hold Metformin and glimepiride. -Consult nutrition for diabetic education 4. Hyperlipidemia atorvastatin to 80 mg p.o. 5. Morbid obesity, BMI -Nutrition consulted for education, lifestyle modification encouraged DVT prophylaxis-Lovenox to start from 24 hours after the removal of sheath. Bilateral SCDs Clinical Impression(s) from Imaging Studies Chest X-Ray 09/27/20 17:40 IMPRESSION: No acute cardiopulmonary pathology Active Medications Acetaminophen (Acetaminophen 325 Mg Tablet) 650 mg PO Q6H PRN PRN PRN Reason: Pain Score 1-10/Temp > 100.7 F Last Admin: 09/28/20 06:34 Dose: 650 mg Documented by: Albuterol Sulfate (Albuterol 2.5 Mg/3 Ml Vial.Neb.) 2.5 mg INHALATION Q2H PRN PRN PRN Reason: Dyspnea, wheezing Aspirin (Aspirin E.C. 81 Mg Tablet) 81 mg PO DAILY@0800 [facility] Last Admin: 09/28/20 08:47 Dose: 81 mg Documented by: Atorvastatin Calcium (Atorvastatin Calcium 40 Mg Tablet) 40 mg PO QHS [facility] Last Admin: 09/27/20 22:40 Dose: 40 mg Documented by: Atropine Sulfate (Atropine Sulfate 1 Mg/10 Ml Syringe) 0.5 mg IV UD PRN PRN Reason: HR <50 bpm Carvedilol (Carvedilol 6.25 Mg Tablet) 6.25 mg PO BID [facility] Last Admin: 09/28/20 08:47 Dose: 6.25 mg Documented by: Enoxaparin Sodium (Enoxaparin 40 Mg/0.4 Ml Syringe) 40 mg SC BID [facility] Last Admin: 09/28/20 08:47 Dose: 40 mg Documented by: Heparin Sodium (Beef Lung) (Heparin Lock 500 Unit/5 Ml In 10 Ml Syringe) 500 unit IV UD PRN PRN Reason: HEPARIN FLUSH Hydralazine HCl (Hydralazine 20 Mg/Ml Vial) 10 mg IV Q4H PRN PRN PRN Reason: SBP > 160 Last Admin: 09/28/20 13:35 Dose: 10 mg Documented by: Sodium Chloride () 250 mls @ 15 mls/hr IV .[id number] PRN PRN Reason: Saline Flush Sodium Chloride () 250 mls @ 15 mls/hr IV .[id number] PRN PRN Reason: Additional IVPB Infusion Insulin Human Lispro (Insulin Lispro 100 Unit/Ml Insuln.Pen) [address] [facility]; Protocol Last Admin: 09/28/20 12:38 Dose: 2 u Documented by: Labetalol HCl (Labetalol (Prefilled) 20 Mg/4 Ml) 5 mg IV X1 PRN PRN Reason: SBP >160 when pulling sheath Stop: 09/29/20 19:53 Losartan Potassium (Losartan Potassium 50 Mg Tablet) 50 mg PO DAILY [facility] Last Admin: 09/28/20 16:00 Dose: 50 mg Documented by: Melatonin (Melatonin 3 Mg Tablet) 3 mg PO QHS PRN PRN PRN Reason: INSOMNIA Morphine Sulfate (Morphine 2 Mg/Ml Syringe) 2 mg IV Q3H PRN PRN PRN Reason: Pain Score 6-10 Nitroglycerin (Nitroglycerin (Inpatient Use) 0.4 Mg Tab.Subl) 0.4 mg SL Q5M PRN PRN Reason: CARDIAC/CHEST PAIN Ondansetron HCl (Ondansetron 4 Mg/2 Ml Vial) 4 mg IV Q8H PRN PRN PRN Reason: NAUSEA/VOMITING Sodium Chloride (0.9% Normal Saline 500 Ml Iv.Soln.) 500 ml IV BOLUS PRN PRN Reason: VASO-VAGAL PROTOCOL Sodium Chloride (0.9% Saline Lock 10 Ml Syringe) 10 - 40 ml IV UD PRN PRN Reason: SALINE FLUSH Last Admin: 09/28/20 08:47 Dose: 10 ml Documented by: Ticagrelor (Ticagrelor 90 Mg Tablet) 90 mg PO BID [facility] Last Admin: 09/28/20 06:15 Dose: 90 mg Documented by: Inpatient E&M: [id number] [facility] L3
[2020-09-28 08:06] LABS: Bedside Glucose 212 mg/dL (70-110)
[2020-09-28] MEDS: Carvedilol 6.25 MG Tablet PO ×2 (08:47→21:20)
[2020-09-28] MEDS: Enoxaparin 40 MG/0.4 ML Syringe SC ×2 (08:47→21:20)
[2020-09-28] MEDS: 0.9% Saline Lock 10 ML Syringe IV ×2 (08:47→19:21)
[2020-09-28] MEDS: Aspirin E.C. 81 MG Tablet PO (08:47)
[2020-09-28] MEDS: Insulin Lispro 100 UNIT/ML INSULN.PEN SC ×4 (08:48→21:21)
--- NOTE | 2020-09-28 09:06 | CRPHASE1 ---
Patient Communication PHII Cardiac Rehab Discussed with Patient:: No Guide to Cardiac Rehab Given to Patient:: No Cardiac Rehab Facility Choice List Given to Patient:: No Choice Program [facility] CR PHII:: Communication Given to CR Choice Program Other:: Communication Given to CR Blow Moulding Machine Operator:: Sushant Gillespie Refer Phase II Cardiac Rehab:: Yes Sessions:: 36 sessions - 3 days/wk, 12 weeks Cardiac Rehabilitation Info Cardiac Rehabilitation Program Information: Cardiac Rehabilitation is important for patients like you who are recovering from a heart problem. Cardiac rehabilitation programs are recognized as integral to the continued care of the patient with coronary heart disease. The cardiac rehabilitation program is designed to optimize a patient's physical, psychological, and social functioning. Health career transition specialist work in cardiac rehabilitation programs and assist you with getting the treatments you need to get stronger and healthier - like exercise, healthy eating habits, and medications. Cardiac rehabilitation has been show to help people with heart problems live longer and have better life enjoyment than people who do not go to cardiac rehabilitation. Please contact the Cardiac Rehabilitation Program at [facility] at in two weeks if you have not heard from them.
--- NOTE | 2020-09-28 09:08 | CRPH1.INSTRU ---
General Education CAD and cardiac anatomy and function:: Patient communicates acknowledgment, Needs reinforcement Explanation of diagnoses and procedures:: Patient communicates acknowledgment, Needs reinforcement Sign/Symptoms of CT:: Patient communicates acknowledgment, Needs reinforcement Antiplatelet therapy: Patient communicates acknowledgment, Needs reinforcement Proper use of NTG-SL: Patient communicates acknowledgment, Needs reinforcement Emergency procedures and activation of EMS: Patient communicates acknowledgment, Needs reinforcement Compliance of all prescribed medications: Patient communicates acknowledgment, Needs reinforcement Smoking Patient Nicotine/Smoking Risk Factors Are:: Non-smoker Nicotine/Smoking Response Code:: Patient communicates acknowledgment Dyslipidemia Patient Dyslipidemia Risk Factors Are:: Total Cholesterol, Triglycerides, HDL, LDL Recommendations Include:: Lipid profile not available, Reviewed NCEP/ATP guidelines, Therapeutic Lifestyle Change dietary guidelines Dyslipidemia Response Code:: Patient communicates acknowledgment, Needs reinforcement Overweight/Obesity Patient Overweight/Obesity Risk Factors Are:: Obesity - > or = 30 Recommendations Include:: Reduced calorie diet, Exercise 5-7 times/week Overweight/Obesity:: Patient communicates acknowledgment, Needs reinforcement Hypertension Recommendations Include:: BP <130/80 if diabetic, DASH dietary guidelines, Decrease/maintain normal body weight, Moderation of ETOH Hypertension:: Patient communicates acknowledgment, Needs reinforcement Heart Disease Patient Heart Disease Risk Factors Are:: Family history of heart disease < 65 years old, Previous cardiac event Recommendations Include:: Educated family members of their risk, Educated family members of importance of prevention of heart disease Heart Disease Response Code:: Patient communicates acknowledgment, Needs reinforcement Diabetes Patient Diabetes Risk Factors Are:: Elevated blood sugars Recommendations Include:: Maintain fasting blood sugars 70-110 md/dL, Maintain HgbA1c of 6% or less, Monitor blood sugar as prescribed, Diabetic dietary guidelines, Decrease/maintain body weight Diabetes:: Patient communicates acknowledgment, Needs reinforcement Sedentary Patient Sedentary Risk Factors Are:: Lack of regular exercise Recommendations Include:: Aerobic exercise 5-7 times/week for 20-30 minutes continuously, Benefits of regular exercise, Discussed home walking program, Monitored Outpatient Cardiac Rehab Sedentary Response Code:: Patient communicates acknowledgment, Needs reinforcement Stress Recommendations Include:: Identification of stressors, and assessment of coping skills, Stress management techniques Stress Response Code:: Patient communicates acknowledgment, Needs reinforcement
[2020-09-28 12:30] LABS: Bedside Glucose 194 mg/dL (70-110)
--- NOTE | 2020-09-28 12:43 | CASEMGMT ---
FREYA LOWE MEDICAL RESEARCHER CM to room to meet with patient for initial transition planning/care coordination assessment. FREYA LOWE introduced self and role at [facility]. Pt voices understanding and consents to assessment at this time. Pt resting in bed in no distress at this time. Pt is A/O at this time and answers all questions appropriately. Care providers, pharmacy, and demographics verified/updated at this time. PCP:Dr Valentin Specialists:Dr Mascorro--neurologist @ [facility], Dr Delacruz--neurologist @ [facility]--specializes in headaches, Dr Bruno--community nurse @ [facility], Dr Zacarias--tower erector @ [facility], Dr Fermin-psychologist @ [facility] Preferred Pharmacy: [facility] Retail Insurance: [employer] Prescription Benefit: Yes. Pt to discharge home on Brilinta. [facility] pharmacy to apply Brilinta 30-day savings card. Pt made aware and instructed to f/u with her community nurse if prior auth is needed for refills or if there are any cost issues. Living Will/HPOA: Has both LW and Healthcare POA. Pt aware they are not on file @ [facility]. POA is her brother, Grabiel Baron. 1st alternative is sis-in-law, Carla Baron. LNOK: Brother, Grabiel. Living Arrangements: Lives w/her brother and sis-in-law in 2-story home w/basement. Pt's bedroom is in the basement. Pt states she still has some residual weakness after her stroke in 2020. She states she is able to navigate the stairs, but states, I just cannot do them often. There is no bathroom in the basement, so she uses a BSC. Pt is independent w/ADL's. She helps w/home mgmt tasks. Transportation: Pt states drives self and states no transportation concerns at this time. DME: States has the following DME: BSC, cane, glucometer--states it is working properly and she has all the needed supplies. Pt states no need for further DME at this time. HHC/SNF: No hx of SNF. Has had HHC in the past after her stroke in 2020, but does not remember name of agency. Pt denies need for HHC. She states she is interested in going to Cardiac Rehab, and inquired about the hours they offer this. She was made aware [facility] cardiac rehab is MWF 8-4. She states she just recently started her job and does not have any sick time hours available, but plans to talk w/her employer to inquire if her hours can be adjusted so she can go. Pt wishes to return home and states has no concerns with going home at time of discharge. CM to follow for any further discharge planning/needs. Pt voices no further concerns/needs at this time. Advised pt to ask for CM if any further questions/concerns/needs arise. Voices understanding. PLAN: Home w/family support and discharge plans in place. Debbie GOODWIN RN CM
[2020-09-28] MEDS: Losartan Potassium 50 MG Tablet PO (16:00)
[2020-09-28 16:15] LABS: Bedside Glucose 209 mg/dL (70-110)
[2020-09-28] MEDS: Magnesium Chloride 64 MG Delay Rel.Tablet 128 MG PO ×2 (17:57→21:19)
[2020-09-28] MEDS: Na Biphos/Potassium Phosphate PACKET 1 PACKET PO ×2 (17:58→21:19)
[2020-09-28 21:05] LABS: Bedside Glucose 168 mg/dL (70-110)
[2020-09-28] MEDS: Atorvastatin Calcium 40 MG Tablet PO (21:19)
[2020-09-29] VITALS (16 sets, daily range): BP systolic 129–164; BP diastolic 68–96; PULSE 48–88; RESP 12–21; TEMP 36.8; O2SAT 95–98
--- NOTE | 2020-09-29 01:40 | CPS ---
pt unable to tolerate BIPAP
[2020-09-29 05:06] LABS: Absolute Lymphocyte Count 3.27 X10^3/uL (0.83-4.51); Absolute Neutrophil Count 3.9 X10^3/uL (2.0-7.7); Basophil# 0.03 X10^3/uL; Basophil% 0.4 % (0-1); Eosinophils% 1.3 % (0-5); Hematocrit 46.3 % (37-47); Lymphocyte # 3.27 X10^3/ul (0.83-4.51); Lymphocyte % 41.8 % (19-41); Mean Corp Hgb Conc 32.4 g/dL (32-36); Mean Corpuscular Hgb 30.3 pg (27.0-32.0); Mean Corpuscular Volume 93.5 fL (81-99); Mean Platelet Vol. 10.7 fl (6.2-12.0); Monocyte# 0.55 X10^3/uL; NRBC Flagged by Analyzer 0 % (0-5); Neutrophil # 3.85 X10^3/uL (2.7-7.7); Neutrophil % 49.1 % (47-70); Platelet Count 232 K/mm3 (150-450); RBC Distribution Width CV 14.9 % (11.6-14.6); RBC Distribution Width SD 51.8 fl (35.1-43.9); Red Blood Count 4.95 M/mm3 (4.2-5.4); White Blood Count 7.8 K/mm3 (4.4-11.0)
[2020-09-29 05:22] LABS: Anion Gap 3 (5-15); BUN 12 mg/dL (7-18); BUN/Creat Ratio 15.2 RATIO (10-20); Calcium,Total 8.6 mg/dL (8.5-10.1); Chloride 109 mmol/L (98-107); Creatinine, Serum 0.79 mg/dL (0.55-1.02); EST Glomerular Filtration Rate 83 mL/min (>60); Est Glom Filt Rate - Afr Amer 101 mL/min (>60); Estimated Creatinine Clearance 77.66 ml/min; Glucose 183 mg/dL (74-106); Magnesium 1.9 mg/dL (1.6-2.6); Phosphorus 3.1 mg/dL (2.5-4.9); Potassium 4.1 mmol/L (3.5-5.1); Sodium Level 135 mmol/L (136-145)
[2020-09-29] MEDS: Na Biphos/Potassium Phosphate PACKET 1 PACKET PO (05:26)
--- NOTE | 2020-09-29 08:09 | PCM.DC ---
- Discharge Diagnoses Current Active Problems: Current Active and Chronic Problems (Last Updated 09/28/20 @ 08:27 by Isha Anthony) History of hypertension (Chronic) History of diabetes as a child (Chronic) History of hypercholesterolemia (Chronic) History of stroke (Chronic) Acute ST elevation myocardial infarction (STEMI) of inferior wall (Acute) Non-alcoholic fatty liver disease (Chronic) You will use the following diet at home:: Cardiac Your food should be the consistency of: Regular Discharge Activity: May Not Drive - Until follows PCP. Weight Bearing Status: Weight bearing as tolerated Additional Activity Instructions:: Avoid pushing, pulling or aggressive work for 2 weeks. Right elbow cardiac cath access site. Call your doctor if you observe: Fever of 101 or Higher, Coldness, Increased Pain, Numbness or Tingling, Change in Color, Inability to urinate, Inability to have a bowel movement, Using more than one pad per hour, Shortness of breath, Dizziness, Fainting spells, Swelling in the ankles, Chest pain, Prolonged hiccoughing, Increased palpitations (irregular heartbeat), Calf discomfort, Uncontrolled pain Allergies/Adverse Reactions: Allergies adhesive tape Allergy (Verified 09/27/20 18:06) Other cefdinir Allergy (Verified 08/12/17 12:27) Rash fluticasone [From Flonase] Allergy (Verified 09/27/20 18:06) Other isosorbide Allergy (Verified 09/27/20 17:59) Chest tightness Penicillins Allergy (Verified 08/12/17 12:27) Rash sulfamethoxazole [From Bactrim] Allergy (Verified 08/12/17 12:27) Rash trimethoprim [From Bactrim] Allergy (Verified 08/12/17 12:27) Rash clarithromycin [From Biaxin] Adverse Reaction (Verified 08/12/17 12:27) Vomiting clindamycin Adverse Reaction (Verified 08/12/17 12:27) Diarrhea codeine Adverse Reaction (Verified 08/12/17 12:27) Other lisinopril Adverse Reaction (Verified 08/12/17 12:27) Vomiting naproxen Adverse Reaction (Verified 08/12/17 12:27) Other ropinirole HCl [From Requip] Adverse Reaction (Verified 08/12/17 12:27) Chest tightness Medications to take at Discharge Gabapentin [Neurontin] 800 mg PO QHS 02/26/16 Fexofenadine HCl [Essie Allergy] 180 mg PO DAILY 05/05/17 Amlodipine [Norvasc] 5 mg PO DAILY 09/28/20 Escitalopram Oxalate [Lexapro] 10 mg PO DAILY 09/28/20 Gabapentin [Neurontin] 400 mg PO BID 09/28/20 Prilosec 40 mg 09/28/20 Rosuvastatin Calcium [Crestor] 40 mg PO DAILY 09/28/20 Topiramate [Topamax] 100 mg PO BID 09/28/20 traZODone [Desyrel] 50 mg PO QHS 09/28/20 Aspirin E.C. [Ecotrin] 81 mg PO DAILY@0800 #30 tablet 09/29/20 Carvedilol [Coreg (Beta Jose Alfredo)] 6.25 mg PO BID #60 tablet 09/29/20 Losartan Potassium [Cozaar] 50 mg PO DAILY #30 tablet 09/29/20 Ticagrelor [Brilinta] 90 mg PO BID #60 tablet 09/29/20 cycloBENZAPRine HCl [Flexeril] 10 mg PO TID PRN PRN #0 09/29/20 The following prescriptions were given: Ticagrelor [Brilinta] 90 mg PO BID #60 tablet Transmission Status: Pending to [facility] Carvedilol [Coreg (Beta Jose Alfredo)] 6.25 mg PO BID #60 tablet Transmission Status: Pending to [facility] Losartan Potassium [Cozaar] 50 mg PO DAILY #30 tablet Transmission Status: Pending to [facility] Aspirin E.C. [Ecotrin] 81 mg PO DAILY@0800 #30 tablet Transmission Status: Pending to [facility] Orders to be completed after discharge: Phase II, Outpatient Cardiac Rehab Location: None Selected Primary Care Physician: Diana Valentin MD [Primary Care Provider] - Please follow up with your Primary Care Physician in: in 2 weeks Test Results: Test results from this visit will be discussed in further detail at your follow-up appointment, if applicable. Please Follow Up With: Sushant Gillespie MD When: as scheduled. card rehab
[2020-09-29 08:10] LABS: Bedside Glucose 202 mg/dL (70-110)
[2020-09-29] MEDS: Insulin Lispro 100 UNIT/ML INSULN.PEN SC (08:13)
[2020-09-29] MEDS: Insulin Lispro 100 UNIT/ML INSULN.PEN 10 UNIT SC (08:13)
[2020-09-29] MEDS: Aspirin E.C. 81 MG Tablet PO (08:15)
[2020-09-29] MEDS: Losartan Potassium 50 MG Tablet PO (08:15)
[2020-09-29] MEDS: TICAGRELOR 90 MG TABLET PO (08:15)
[2020-09-29] MEDS: Enoxaparin 40 MG/0.4 ML Syringe SC (08:16)
[2020-09-29] MEDS: Magnesium Chloride 64 MG Delay Rel.Tablet 128 MG PO (08:17)
[2020-09-29] MEDS: Carvedilol 6.25 MG Tablet PO (08:17)
--- NOTE | 2020-09-29 09:39 | DS.PCM_ITS ---
Discharge Date and Diagnosis - Problem List Patient Problems: Active and Suspected Problems (Last Updated 09/28/20 @ 08:27 by Isha Anthony) Acute ST elevation myocardial infarction (STEMI) of inferior wall (Acute) Date of Admission: 09/27/20 Date of Discharge: 09/29/20 - Primary Discharge Diagnosis Acute Problems: Active Problems (Last Updated 09/28/20 @ 08:27 by Isha Anthony) Acute ST elevation myocardial infarction (STEMI) of inferior wall (Acute) - Secondary Discharge Diagnosis Chronic Problems: Chronic Problems (Last Updated 09/28/20 @ 08:27 by Isha Anthony) Presence of stent in coronary artery (Chronic ~09/27/20) PCI/ESAU to mid RCA and LAD per cardiac cath 09/27/20 Atherosclerotic heart disease of [place] coronary artery without angina pectoris (Chronic) History of hypertension (Chronic) History of diabetes as a child (Chronic) History of hypercholesterolemia (Chronic) History of stroke (Chronic) Non-alcoholic fatty liver disease (Chronic) Hospital Course and Treatment Summary of Care Provided: The patient is 45-year-old female admitted with chest pain and found to have inferior wall STEMI. 1. Inferior wall STEMI: There was procedure delay to PCI because difficult to get vascular access. Initially right ulnar artery, and both common femoral arteries and then finally got access of right brachial artery. It was found to have 99% stenosis of mid RCA and 80% of LAD for which ESAU was done. 2D echo is ordered. Patient on aspirin, Brilinta, carvedilol, losartan and atorvastatin. Troponin high. 2D echo Interpretation Summary The estimated ejection fraction is 55 %.No evidence for diastolic dysfunction. mild hypokinesis of the inferolateral wall Fasting profile shows LDL 128, triglyceride 323 and total cholesterol 230, HDL 37. On high intensity atorvastatin. Patient has hypophosphatemia and potassium was replaced. Repeat phosphorus 3.1. 2. Hypertensive emergency present on admission with inferior wall STEMI/endorgan damage: Blood pressure still elevated -Continue HCTZ and Losartan. IV hydralazine and labetalol as needed for hypertensive emergency. -Nitroglycerin drip was discontinued. Blood pressure is controlled. 3. Diabetes mellitus type 2: With morbid obesity and hyperglycemia: A1c 7.9. Glucose about 200. Uptitrate insulin dose. Hold Metformin and glimepiride. -Consult nutrition for diabetic education Patient on NovoLog Mix 70/30 22 units subcu twice daily and liraglutide 1.2 mg subcu daily. Advised to follow with PCP increase the dose of NovoLog based on the Accu-Cheks. 4. Hyperlipidemia atorvastatin to 80 mg p.o. 5. Morbid obesity, BMI -Nutrition consulted for education, lifestyle modification encouraged DVT prophylaxis-Lovenox to start from 24 hours after the removal of sheath. Bilateral SCDs Discharge medication reconciliation done. Discharge follow-up instructions completed. Discharge process discussed with the patient and all questions were answered to patient's satisfaction. Prescriptions for aspirin, Brilinta, Coreg, losartan, aspirin was given. Total time spent, exact 35 minutes on discharge meds reconciliation, examination, coordination of care with nurses and ancillary staff, review of imaging and blood test and discussion with the patient on follow-up instructions Patient Problems: Active and Suspected Problems (Last Updated 09/28/20 @ 08:27 by Isha Anthony) Acute ST elevation myocardial infarction (STEMI) of inferior wall (Acute) Objective: Seen and examined. Patient had mild chest pain in the morning, left-sided for short time and went away. It was localized without radiation. Did not feel like heart attack to the patient. Hardick monitor shows sinus rhythm. Physical exam General: Alert, Oriented x3, Cooperative HEENT: Atraumatic, PERRLA, EOMI, Normocephalic Oral: No Gingival or Mucosal Lesions/ Ulcerations Neck: Supple, No JVD, Negative Carotid Bruits Lungs: Air entry diminished in bilateral lung bases. No crepitation/rhonchi Cardiovascular: Regular rate, Regular Rhythm, Normal S1, Normal S2, No murmurs Abdomen: Bowel Sounds Present, Soft, Non Tender, Non-Distended : No renal angle tenderness. No suprapubic tenderness. Extremities: Right brachial artery cardiac cath access site, no hematoma or bruise. Mild bilateral ankle edema, Capillary Refill Less than 3 Seconds Skin: No rashes, No breakdown Musculoskeletal: No Tenderness to Palpation of Joints or Extremities Neurological: Cranial nerves II-XII grossly intact, Deep Tendon Reflexes 2+/4 and Symmetrical, Neuro grossly intact Psych/Mental Status: Normal Affect, Appropriate. - Physical Exam Vitals/I&O's: Vital Signs Temp Pulse Resp BP Pulse Ox 98.3 F 73 16 141/90 H 97 09/29/20 04:00 09/29/20 08:00 09/29/20 08:00 09/29/20 08:00 09/29/20 08:00 Oxygen Delivery Method Room Air Weight: 262 lb 9.129 oz Body Mass Index (BMI) 45.8 Intake and Output for Last 24 Hours 09/27/20 09/28/20 09/29/20 23:59 23:59 23:59 Intake Total 6.30 / 7.80 3514.50 / 3634.50 345 / 345 Output Total 725 / 725 4200 / 4550 350 / 350 Balance -718.70 / -717.20 -685.50 / -915.50 -5 / -5 Laboratory Results 09/28/20 08:10: Troponin I Cancelled 09/28/20 12:27: POC Glucose 194 H 09/28/20 15:58: POC Glucose 209 H 09/28/20 21:01: POC Glucose 168 H 09/29/20 04:44: WBC 7.8, RBC 4.95, Hgb 15.0, Hct 46.3, MCV 93.5, MCH 30.3, MCHC 32.4, RDW Std Deviation 51.8 H, RDW Coeff of Claudia 14.9 H, Plt Count 232, MPV 10.7, Immature Gran % (Auto) 0.400, Neut % (Auto) 49.1, Lymph % (Auto) 41.8 H, Branch % (Auto) 7.0, Eos % (Auto) 1.3, Baso % (Auto) 0.4, Absolute Neuts (auto) 3.9, Absolute Lymphs (auto) 3.27, Nucleated RBC % 0 09/29/20 04:44: Sodium 135 L, Potassium 4.1, Chloride 109 H, Carbon Dioxide 23.0, Anion Gap 3 L, BUN 12, Creatinine 0.79, Estim Creat Clear Calc 77.66, Est GFR (MDRD) Af Amer 101, Est GFR (MDRD) Non-Af 83, BUN/Creatinine Ratio 15.2, Glucose 183 H, Calcium 8.6, Phosphorus 3.1, Magnesium 1.9 09/29/20 08:01: POC Glucose 202 H Current Medications Acetaminophen (Acetaminophen 325 Mg Tablet) 650 mg PO Q6H PRN PRN PRN Reason: Pain Score 1-10/Temp > 100.7 F Last Admin: 09/28/20 23:56 Dose: 650 mg Documented by: Albuterol Sulfate (Albuterol 2.5 Mg/3 Ml Vial.Neb.) 2.5 mg INHALATION Q2H PRN PRN PRN Reason: Dyspnea, wheezing Aspirin (Aspirin E.C. 81 Mg Tablet) 81 mg PO DAILY@0800 [facility] Last Admin: 09/29/20 08:15 Dose: 81 mg Documented by: Atorvastatin Calcium (Atorvastatin Calcium 40 Mg Tablet) 40 mg PO QHS [facility] Last Admin: 09/28/20 21:19 Dose: 40 mg Documented by: Atropine Sulfate (Atropine Sulfate 1 Mg/10 Ml Syringe) 0.5 mg IV UD PRN PRN Reason: HR <50 bpm Carvedilol (Carvedilol 6.25 Mg Tablet) 6.25 mg PO BID [facility] Last Admin: 09/29/20 08:17 Dose: 6.25 mg Documented by: Enoxaparin Sodium (Enoxaparin 40 Mg/0.4 Ml Syringe) 40 mg SC BID [facility] Last Admin: 09/29/20 08:16 Dose: 40 mg Documented by: Heparin Sodium (Beef Lung) (Heparin Lock 500 Unit/5 Ml In 10 Ml Syringe) 500 unit IV UD PRN PRN Reason: HEPARIN FLUSH Hydralazine HCl (Hydralazine 20 Mg/Ml Vial) 10 mg IV Q4H PRN PRN PRN Reason: SBP GREATER THAN 170 Last Admin: 09/28/20 19:21 Dose: 10 mg Documented by: Sodium Chloride () 250 mls @ 15 mls/hr IV .[id number] PRN PRN Reason: Saline Flush Sodium Chloride () 250 mls @ 15 mls/hr IV .[id number] PRN PRN Reason: Additional IVPB Infusion Insulin Glargine (Insulin Glargine 100 Units/Ml Pen) 15 units SC QHS [facility] Last Admin: 09/28/20 21:20 Dose: 15 u Documented by: Insulin Human Lispro (Insulin Lispro 100 Unit/Ml Insuln.Pen) 0 unit SC ACHS [facility]; Protocol Last Admin: 09/29/20 08:13 Dose: 2 u Documented by: Insulin Human Lispro (Insulin Lispro 100 Unit/Ml Insuln.Pen) 10 unit SC TIDAC [facility] Last Admin: 09/29/20 08:13 Dose: 10 u Documented by: Labetalol HCl (Labetalol (Prefilled) 20 Mg/4 Ml) 20 mg IV Q6H PRN PRN Reason: SBP>190 OR DBP >120 Losartan Potassium (Losartan Potassium 50 Mg Tablet) 50 mg PO DAILY [facility] Last Admin: 09/29/20 08:15 Dose: 50 mg Documented by: Magnesium Chloride (Magnesium Chloride 64 Mg Delay Rel.Tablet) 128 mg PO BID [facility] Stop: 09/29/20 22:01 Last Admin: 09/29/20 08:17 Dose: 128 mg Documented by: Melatonin (Melatonin 3 Mg Tablet) 3 mg PO QHS PRN PRN PRN Reason: INSOMNIA Morphine Sulfate (Morphine 2 Mg/Ml Syringe) 2 mg IV Q3H PRN PRN PRN Reason: Pain Score 6-10 Nitroglycerin (Nitroglycerin (Inpatient Use) 0.4 Mg Tab.Subl) 0.4 mg SL Q5M PRN PRN Reason: CARDIAC/CHEST PAIN Ondansetron HCl (Ondansetron 4 Mg/2 Ml Vial) 4 mg IV Q8H PRN PRN PRN Reason: NAUSEA/VOMITING Potassium Phos/Sodium Phos (Na Biphos/Potassium Phosphate Packet) 1 packet PO TID [facility] Stop: 09/30/20 06:01 Last Admin: 09/29/20 05:26 Dose: 1 packet Documented by: Sodium Chloride (0.9% Normal Saline 500 Ml Iv.Soln.) 500 ml IV BOLUS PRN PRN Reason: VASO-VAGAL PROTOCOL Sodium Chloride (0.9% Saline Lock 10 Ml Syringe) 10 - 40 ml IV UD PRN PRN Reason: SALINE FLUSH Last Admin: 09/28/20 19:21 Dose: 10 ml Documented by: Ticagrelor (Ticagrelor 90 Mg Tablet) 90 mg PO BID [facility] Last Admin: 09/29/20 08:15 Dose: 90 mg Documented by: Discharge Activity: May Not Drive - Until follows PCP. Weight Bearing Status: Weight bearing as tolerated Additional Activity Instructions:: Avoid pushing, pulling or aggressive work for 2 weeks. Right elbow cardiac cath access site. Call your doctor if you observe: Fever of 101 or Higher, Coldness, Increased Pain, Numbness or Tingling, Change in Color, Inability to urinate, Inability to have a bowel movement, Using more than one pad per hour, Shortness of breath, Dizziness, Fainting spells, Swelling in the ankles, Chest pain, Prolonged hiccoughing, Increased palpitations (irregular heartbeat), Calf discomfort, Uncontrolled pain Home Medications: Medications to take at Discharge Gabapentin [Neurontin] 800 mg PO QHS 02/26/16 Fexofenadine HCl [Essie Allergy] 180 mg PO DAILY 05/05/17 Amlodipine [Norvasc] 5 mg PO DAILY 09/28/20 Escitalopram Oxalate [Lexapro] 10 mg PO DAILY 09/28/20 Gabapentin [Neurontin] 400 mg PO BID 09/28/20 Prilosec 40 mg 09/28/20 Rosuvastatin Calcium [Crestor] 40 mg PO DAILY 09/28/20 Topiramate [Topamax] 100 mg PO BID 09/28/20 traZODone [Desyrel] 50 mg PO QHS 09/28/20 Aspirin E.C. [Ecotrin] 81 mg PO DAILY@0800 #30 tablet 09/29/20 Carvedilol [Coreg (Beta Jose Alfredo)] 6.25 mg PO BID #60 tablet 09/29/20 Insulin Human 70/30 [Novolog Mix 70-30 Flexpen Syrn] 22 units SC BIDCM 09/29/20 Liraglutide [Victoza] 1.2 mg SQ DAILY 09/29/20 Losartan Potassium [Cozaar] 50 mg PO DAILY #30 tablet 09/29/20 Ticagrelor [Brilinta] 90 mg PO BID #60 tablet 09/29/20 cycloBENZAPRine HCl [Flexeril] 10 mg PO TID PRN PRN #0 09/29/20 Following Prescriptions Were Given to Patient: Ticagrelor [Brilinta] 90 mg PO BID #60 tablet Transmission Status: Received by [facility] Carvedilol [Coreg (Beta Jose Alfredo)] 6.25 mg PO BID #60 tablet Transmission Status: Received by [facility] Losartan Potassium [Cozaar] 50 mg PO DAILY #30 tablet Transmission Status: Received by [facility] Aspirin E.C. [Ecotrin] 81 mg PO DAILY@0800 #30 tablet Transmission Status: Received by [facility] Other Amb Orders: Phase II, Outpatient Cardiac Rehab Location: None Selected Primary Care Physician: Diana Valentin MD [Primary Care Provider] - Please follow up with your Primary Care Physician in: in 2 weeks Please Follow Up With: Sushant Gillespie MD When: as scheduled. card rehab Medical Necessity - Tobacco Use Smoking Status: Current every day smoker Tobacco Use: Cigarettes Meaningful Use Info Meaningful Use Diagnoses (Choose all that apply): AMI - AMI/Post PCI/Angioplasty Aspirin given w/in 24hrs of arrival?: Yes ASA at discharge?: Yes Antiplatelet Therapy at Discharge:: Yes Statins at discharge?: Yes William/ARB at discharge?: Yes Beta Jose Alfredo at discharge?: Yes Done w/ Acute [place] measure.: Yes Documented LVEF (%): 55 Inpatient E&M: [id number] Disch Hosp
--- NOTE | 2020-09-29 10:00 | EKG12_ITS ---
Test Reason : AM EKG Blood Pressure : / mmHG Vent. Rate : 064 BPM Atrial Rate : 064 BPM P-R Int : 128 ms QRS Dur : 088 ms QT Int : 426 ms P-R-T Axes : 067 042 -23 degrees QTc Int : 439 ms Normal sinus rhythm Normal ECG When compared with ECG of 28-SEP-2020 04:41, MANUAL COMPARISON REQUIRED, DATA IS UNCONFIRMED Confirmed by JENI HENDRIX, ARYA ([id number]), editor newspaper SALMA PACHECO ([id number]) on 10/03/2020 10:01:22 A M Referred By: Sushant Gillespie Confirmed By:VANESSA GILLESPIE MD
[2020-09-29 11:46] LABS: Bedside Glucose 187 mg/dL (70-110)
--- NOTE | 2020-09-29 11:48 | CASEMGMT ---
Addendum entered by Yesica Kingston 09/29/20 14:03: Palliative screening tool completed for Strata 3. Pt does not meet criteria for Palliative referral at this time. Original Note: FREYA LOWE NOTE: Pt being discharged home. Brilinta has been e-scribed to [facility]. Call placed to [facility] and Brilinta savings card has been applied. 1st 30 days will be no cost for pt. Pt made aware. Dr Elizabeth states pt informed him she takes insulin @ home but this was not listed on home medication list. FREYA Plummer, aware and states has updated home med list with pt's current home insulin orders. Dr Elizabeth made aware this has been updated. Debbie GOODWIN RN CM
--- NOTE | 2020-09-29 13:23 | NURSING ---
discharged per wheelchair wit instructions, & meds in care of family
--- NOTE | 2020-09-29 14:57 | CL.I_ITS ---
Patient Name: JASON SONG Study Date: 09/27/2020 Performing: Trinidad Gillespie MD Ht: inches cm : 1975 Wt: 260.3 lbs 117.93 kg Age: 45 Gender: female BSA: PROCEDURE(S) PERFORMED [id number], ESAU AND/OR PTCA, ARTERY OR GRAFT, SINGLE VESSEL [id number] W OR WO PTCA, SINGLE CORONARY ARTERY [id number] CLINICAL PROFILE AND CO-MORBIDITIES Indications: ACS <= 24 hrs Heart Failure: None Stress/Imaging Stress/Image Study Performed: No CAD Presentations: STEMI. Symptom onset Date/Time: 09/27/20 Time Not Available CONCLUSIONS CAD as described. Successful PCI to mRCA (Orsiro 3.0 x 22mm, Orsiro 3.0 x 18mm) and pLAD (Orsiro 3.0 x 15mm) with ESAU RECOMMENDATIONS DESCRIPTION OF PROCEDURE The patient arrived to the procedure lab. The risks and benefits of the procedure as well as a full d escription of our services here and lack of surgical backup were fully explained to the patient and/o r their significant other prior to the catheterization. The Timeout was completed, verifying the anderson ect patient and procedure. The patient's procedural site was prepped and draped in the usual fashion. Local anesthetic was given subcutaneously to right radial region with Lidocaine 2%. Local anesthetic was given subcutaneously to right groin region with Lidocaine 2%. Local anesthetic was given subcuta neously to left groin region with Lidocaine 2%. Local anesthetic was given subcutaneously to right br achial region with Lidocaine 2%. Using a modified Seldinger technique, and ultrasound guidance,arteri al access was obtained via the right brachial artery, a 6Fr sheath was inserted.. Left Coronary Andree ry selective angiography was performed in multiple views using a 5 Fr. JL3.5 catheter. Right Coronary Artery selective angiography was then performed in multiple views using a 5 Fr. JR 4 c atheter JR 4 Guide catheter was inserted and engaged into the RCA. BMW Guide wire was advanced to the RCA . 2.5x10 Mynor Pro Balloon catheter was inserted. Balloon catheter was advanced across lesion in th e right coronary, mid. PTCA balloon inflated at 7 atms for 8 secs. PTCA balloon inflated at 7 atms fo r 18 secs. Angiogram performed post balloon dilatation. Drug Eluting stent was inserted. 3x22 Orsiro Drug Eluting stent was advanced across the lesion in the right coronary, mid. 3x18 Orsiro Drug Elutin g stent was inserted. Drug Eluting stent was advanced across the lesion in the right coronary, mid. A ngiogram performed post stent deployment. XB 3 Guide catheter was inserted and engaged into the LCA. BMW Guide wire was advanced to the Circumflex. Runthrough Guide wire was advanced to the LAD. 3x15 Or siro Drug Eluting stent was inserted. Drug Eluting stent was advanced across the lesion in the LAD, p roximal. Angiogram performed post stent deployment. The arterial sheath was pulled and manual compression applied until hemostasis is achieved. CORONARY ANGIOGRAPHY DOMINANCE: Right Dominant LEFT HEART ASSESSMENT LEFT MAIN: No significant disease noted LEFT ANTERIOR DESCENDING ARTERY: PROX LAD: 80 % Stenosis CIRCUMFLEX ARTERY: Mild luminal irregularities RIGHT CORONARY ARTERY: MID RCA: 99 % Stenosis VALVE FINDINGS: No Aortic Valve Stenosis INTERVENTION INFORMATION LESION SITE: RCA (Mid) Lesion Complexity: High/C, chronic total occlusion: No, lesion at bifurcation: No, thrombus present: Yes, lesion length: 40 mm, culprit lesion: Yes, Previously treated lesion: No Pre Stenosis: 99 % Pre intervention CLEOPATRA flow: 3 PROCEDURE: Drug Eluting Stent with pre and post dilatation Vascular access was difficult in this patient and that lead to delay to PCI. The radial artery was fa intly palpable and patient said that during 2 prior cerebrvascular inerventions they had to switch to femoral access. We tried ulnar and then bilateral BANK REPRESENTATIVE and were unsuccessful. Finally we were able to access the R brachial artery under ultrasound guidance Post Stenosis: 0 % Post intervention CLEOPATRA flow: 3 Lesion Devices: Veliz .014 BMW Thurmond Straight 190cm Medtronic 6 Fr JR4.0 100cm Guide Catheter LESION SITE: LAD (Proximal) Lesion Complexity: High/C, chronic total occlusion: No, lesion at bifurcation: No, thrombus present: No, lesion length: 10 mm, culprit lesion: No, Previously treated lesion: No Pre Stenosis: 80 % Pre intervention CLEOPATRA flow: 3 PROCEDURE: Drug Eluting Stent Post Stenosis: 0 % Post intervention CLEOPATRA flow: 3 Lesion Devices: Veliz .014 BMW [place] Straight 190cm Cardinal 6 Fr XB3.0 100cm Guide Catheter Terumo .014 Runthrough Extra Floppy 180cm straight COMPLICATIONS No Complications PROCEDURE MEDICATIONS Fentanyl 50 mcg IV Oxygen: 2 L/min via nasal cannula Nitro 200 mcg IC 09/27/2020 19:13:34 Nitro glycerin 25mg / 250ml D5W @ 15 mcg/min IV started 09/27/2020 19:48:46 Nitro glycerin 25mg / 250ml D5W @ 20 mcg/min (increased rate) 09/27/2020 19:53:22 Nitro glycerin 25mg / 250ml D5W @ 30 mcg/min (increased rate) 09/27/2020 19:58:28 Nitro glycerin 25mg / 250ml D5W @ 40 mcg/min (increased rate) 09/27/2020 20:03:35 Nitro glycerin 25mg / 250ml D5W @ 50 mcg/min (increased rate) 09/27/2020 20:08:42 Nitro glycerin 25mg / 250ml D5W @ 75 mcg/min (increased rate) 09/27/2020 20:10:55 Nitro glycerin 25mg / 250ml D5W @ 100 mcg/min (increased rate) 09/27/2020 20:13:11 Nitro glycerin 25mg / 250ml D5W @ 0 mcg/min discontinued 09/27/2020 20:23:54 Vasotec 2.5 mg IV 09/27/2020 19:23:43 SUMMARY OF HEMODYNAMIC DATA Time AIR REST ECG 18:19:34 AO 219/125 (167) SA 18:58:36 AO 241/102 (153) 19:49:42 Signed By Trinidad Gillespie MD On 09/28/2020 08:58:43 Trinidad Gillespie MD
--- NOTE | 2020-09-30 15:15 | CASEMGMT ---
FREYA LOWE Discharge Follow-Up Phone Call. Lace: 10 Strata: 3 Discharge Date: 09/29/20 Adm Dx: STEMI Attempted discharge f/u phone call. No answer. Non-identifying VM left for return call if she has any questions/concerns. Phone numbers provided. Debbie GOODWIN RN CM
== END 2020-09-29 13:20 | disposition home or self-care (01) | DRG 174 ==
LOC: ED 17:56 → ICU 19:58
PROVIDERS: Family Medicine; Nurse Practitioner Family; Admitting Provider Specialist; Emergency Provider Emergency Medicine; PCP Internal Medicine; Referring Provider Specialist; Visit Provider Internal Medicine
DX: I21.19 ST elevation (STEMI) myocardial infarction involving other coronary artery of inferior wall (principal); I25.10 Atherosclerotic heart disease of native coronary artery without angina pectoris; I16.1 Hypertensive emergency; E11.65 Type 2 diabetes mellitus with hyperglycemia; E83.39 Other disorders of phosphorus metabolism; I10 Essential (primary) hypertension; E78.5 Hyperlipidemia, unspecified; E66.01 Morbid (severe) obesity due to excess calories; Z68.42 Body mass index [BMI] 45.0-49.9, adult; F17.210 Nicotine dependence, cigarettes, uncomplicated; F32.9 Major depressive disorder, single episode, unspecified; F41.9 Anxiety disorder, unspecified; Z79.82 Long term (current) use of aspirin; Z79.4 Long term (current) use of insulin; Z79.84 Long term (current) use of oral hypoglycemic drugs; Z79.899 Other long term (current) drug therapy; Z86.73 Personal history of transient ischemic attack (TIA), and cerebral infarction without residual deficits
CPT/HCPCS: 36415; 71045; 80048; 80053; 80061; 82962; 83036; 83735; 84100; 84484; 85025; 85610; 85730; 92928; 92941; 93005; 93306; 93454; 94660; 97162; 97166; 97802; 99152; 99153; 99285; 99406; C1725; J7030; Q9957; Q9967; A4216; C1769; C1874; C1887; C1894; C8929; C9600; C9606; J1327